=== PATIENT | male | born 1955 | race Caucasian/White ===

== ENCOUNTER 2021-12-31 12:04 | Observation (INO) ==
--- NOTE | 2021-12-25 17:18 | History & Physical Report ---
Date of Service December 25, 2021 Assessment & Plan (1) Closed right trimalleolar fracture: Plan: Schedule a Right Ankle Open Reduction Internal Fixation Trimalleolar Fracture with Open Internal Fixation Syndesmotic Disruption, Arthrotomy Medial Ankle, Ankle Joint Debridement for 12.31.21. All potential risks, benefits, complications, alternatives, and rehab have been discussed with the patient and his family and they wish to proceed. (2) Syndesmotic disruption of right ankle: History of Present Illness Chief Complaint: Right ankle pain Primary Care Provider: Kyler Villar MD This is a patient who sustained a right ankle fracture approximately 6 weeks ago. Because of his secondary medical conditions, the fracture was treated conservatively. However, in follow-up, the fracture was noted to be displacing and the ankle mortise is widening. He is now being set up for surgical treatment. Allergies Allergy/AdvReac Type Severity Reaction Status Date / Time No Known Allergies Allergy Verified 12/25/21 10:11 Home Medications Medication Instructions Recorded Confirmed Type apixaban 5 mg tablet (Eliquis) 5 mg PO BID #60 tab 08/20/21 12/25/21 Rx atorvastatin 20 mg tablet 20 mg PO HS #30 tab 08/20/21 12/25/21 Rx escitalopram oxalate 10 mg tablet 10 mg PO DAILY #30 tab 08/20/21 12/25/21 Rx omeprazole 40 mg capsule,delayed 40 mg PO DAILY #90 cap 08/20/21 12/25/21 Rx release loratadine 10 mg tablet (Claritin) 10 mg PO DAILY #30 tab 08/27/21 12/25/21 Rx multivitamin 1 tab PO DAILY #30 tab 08/27/21 12/25/21 Rx Past Med/Surg History Medical History Basal cell carcinoma Stroke 2006 Rt UE paresis w expressive aphasia Surgical History History of appendectomy History of left knee surgery History of neck surgery Hx of LASIK Family History Mother Breast cancer Heart disease Hypertension Ovarian cancer Stroke TIA TIA (transient ischemic attack) Uncle Colorectal cancer maternal Grandmother (Maternal) Diabetes Breast cancer Grandfather (Maternal) Lung cancer Denies family history of Prostate cancer Alzheimer disease Bipolar disorder Dementia Depression Kidney disease Myocardial infarction COPD (chronic obstructive pulmonary disease) Colonic polyp Asthma Social History Smoking Status: Current every day smoker Tobacco Type: Cigarettes Age Started Using Tobacco: 18; packs per day: 1; Second Hand Exposure: No; Hx Alcohol Use: Yes Alcohol type: wine Alcohol Intake Frequency: 2-4 x/Month Hx Substance Use: No Preferred Language: Bhutanese Communication Ability: Impaired Hearing Ability: Normal Copy Cutter Required: No marital status: Single Current Living Situation: Personal Care Facility current occupational status: disabled How many Children do You have: 0 Feels Safe at Home: Yes Childhood Exposure to Second-Hand Smoke: Yes Seatbelt Use: always Sunscreen Use: No Physical Exam Constitutional: no acute distress ENMT: external ear and nose normal, oropharynx normal Neck: trachea midline Respiratory: normal respiratory effort, lungs clear to auscultation Cardiovascular: Rate/Rhythm: regular rate and regular rhythm Gastrointestinal (Abdomen): normal bowel sounds, soft, nontender, no hepatosplenomegaly Musculoskeletal: Right ankle: Tender to the lateral and medial aspect of the ankle. Patient is nonweightbearing. Neurologic: normal touch/pain/proprioception Speech / Cognition: + expressive aphasia Lymphatic: no cervical or axillary lymphadenopathy
--- NOTE | 2021-12-29 12:07 | PAT Medication Instructions ---
Medication Instructions Date of Service December 29, 2021 Home Medications Medication Instructions Recorded apixaban 5 mg tablet (Eliquis) 5 mg PO BID #60 tab 08/20/21 atorvastatin 20 mg tablet 20 mg PO HS #30 tab 08/20/21 apixaban 5 mg tablet (Eliquis) 5 mg PO BID atorvastatin 20 mg tablet 20 mg PO HS escitalopram oxalate 10 mg tablet 10 mg PO QAM loratadine 10 mg tablet (Claritin) 10 mg PO QAM multivitamin 1 tab PO QAM omeprazole 40 mg capsule,delayed release 40 mg PO QAM ASK your prescriber and surgeon apixaban 5 mg tablet (Eliquis) 5 mg PO BID DO NOT take the morning of surgery loratadine 10 mg tablet (Claritin) 10 mg PO QAM multivitamin 1 tab PO QAM Take morning of surgery With a small sip of water, OTHERWISE NOTHING TO EAT OR DRINK AFTER MIDNIGHT: escitalopram oxalate 10 mg tablet 10 mg PO QAM omeprazole 40 mg capsule,delayed release 40 mg PO QAM Take evening before surgery atorvastatin 20 mg tablet 20 mg PO HS Other Notes If you have any questions please call us at [phone] or [phone] or [phone] or [phone]
--- NOTE | 2021-12-29 16:08 | Anesthesiology Consultation ---
Date of Service December 29, 2021 Assessment & Plan (1) Encounter for pre-operative examination: Chart Review Chart Review: Acceptable Risk for Surgery (pending DOS PRP, anesthesia evaluation DOS and anesthesiologist review of unconfirmed preop EKG ) and Patient NOT seen in Pre Admission Testing Pt with "congenital heart disease" per PCP records- per review of records patient with "hole in his heart" per ECHO in Jun 2021 in [place] (PCP attempt ed to get records- pt does not know where he had ECHO done in [place]). Pt is on Eliquis since PE in 06/2021. Pt followed by PCP and cleared for surgery. Discussed with Dr. Paulson- pt can proceed as scheduled -Will order PRP DOS (not done preoperatively) Per nursing assessment 12/29/2021, pt resides in [facility]. No known Covid positive exposures or Covid related symptoms. No known Covid infection in the past 90 days. Pt is fully vaccinated for Covid. Preop Covid testing 12/26/21= negative. Preop Covid testing will be five days old by DOS- will order [place] test for DOS. Patient seen by PCP 12/25/2021 = seen for preop examination. Patient with previous history of pulmonary embolism with recent trimalleolar fracture of the right ankle. Preoperatively patient should come off Eliquis 5 days prior to his surgery and should be started 48 hours after surgery is completed if he has no bleeding. DVT prophylaxis recommended with compressive sequential pumps postoperatively. Neurological statushas expressive asphasia with dense right upper extremity, right lower extremity hemiparesis with loss of sensation in the right upper and right lower extremity from previous stroke. Hypercholesterolemiaon statin. History of depressionLexapro. Considered average operative risk. Encourage smoking cessation. History Surgery Operation Date: 12/31/21 14:20 Proposed Procedures p Right Ankle Open Reduction Internal Fixation Trimalleolar Fracture with Open Reduction Internal Fixation Syndesmotic Disruption, Arthrotomy Medial Ankle, Ankle Joint Debridement - Nick Doyle DO Height/Weight Weight: 130.635 kg Allergies Allergy/AdvReac Type Severity Reaction Status Date / Time No Known Allergies Allergy Verified 12/29/21 09:54 Medications Home Medications Medication Instructions Recorded Confirmed Last Taken apixaban 5 mg tablet (Eliquis) 5 mg PO BID #60 tab 08/20/21 12/29/21 Unknown atorvastatin 20 mg tablet 20 mg PO HS #30 tab 08/20/21 12/29/21 Unknown escitalopram oxalate 10 mg tablet 10 mg PO QAM 12/29/21 12/29/21 Unknown loratadine 10 mg tablet (Claritin) 10 mg PO QAM 12/29/21 12/29/21 Unknown multivitamin 1 tab PO QAM 12/29/21 12/29/21 Unknown omeprazole 40 mg capsule,delayed 40 mg PO QAM 12/29/21 12/29/21 Unknown release Past Medical History Medical History (Updated 12/29/21 @ 16:16 by Bere Perez PA-C) Basal cell carcinoma Closed right trimalleolar fracture 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 On Eliquis Stroke 2005 Rt UE paresis w expressive aphasia Past Family History Family History Mother Breast cancer Heart disease Hypertension Ovarian cancer Stroke TIA TIA (transient ischemic attack) Uncle Colorectal cancer maternal Grandmother (Maternal) Diabetes Breast cancer Grandfather (Maternal) Lung cancer Denies family history of Prostate cancer Alzheimer disease Bipolar disorder Dementia Depression Kidney disease Myocardial infarction COPD (chronic obstructive pulmonary disease) Colonic polyp Asthma Past Surgical History Surgical History History of appendectomy History of left knee surgery History of neck surgery Hx of LASIK Social History Smoking Status: Current every day smoker tobacco type: cigarettes Smoking cigarettes per day: [place] stout Do You Dip or Chew Tobacco: No Hx Alcohol Use: Yes Alcohol type: wine alcohol intake frequency: a few times a month Hx Substance Use: No substance use type: does not use Lab Results Anesthesia Preop Results Results Anesthesia Widget: WBC 8.44 K/uL (4.8-10.8) 12/25/21 Hgb 16.0 g/dL (14.0-18.0) 12/25/21 Hct 48.0 % (42-52) 12/25/21 Plt 234 K/uL (130-400) 12/25/21 PT 10.9 Seconds (9.0-12.0) 12/25/21 PTT 29.0 Seconds (21.0-31.0) 12/25/21 INR 1.0 (0.9-1.1) 12/25/21 Testing Electrocardiogram Date: 12/25/21 SR at 68bpm. unconfirmed (Done at PCP office during preop evaluation visit- pt considered average risk for surgery) Chest X-Ray Date: 11/15/21 1 view CXR No acute disease identified Other Testing CT head/brain 11/15/2021 = no acute intracranial abnormalities identified. Large chronic left MCA territory infarction. Global volume loss and findings most commonly associated with chronic small vessel disease. Intracranial atherosclerotic disease.
[~2021-12-31 12:04] MED LIST: LR 15ML/HR IV SCH
--- NOTE | 2021-12-31 13:55 | History & Physical Bridge Note ---
Date of Service December 31, 2021 History & Physical Bridge Note I have examined the patient, reviewed the History & Physical and in the interval since the performance of the History & Physical I have noted the following changes of clinical significance: no changes noted
[2021-12-31] MEDS ORDERED: ROPIVACAINE 0.5% 5 MG/ML 30 ML VIAL ONE (15:06)
[2021-12-31] MEDS ORDERED: EPINEPHrine INJ 1 MG/ML AMP ONE (15:07)
[2021-12-31] MEDS ORDERED: fentaNYL citrate 100 MCG/2 ML VIAL ONE ×2 (15:11→17:33)
[2021-12-31] MEDS ORDERED: PROPOFOL IV EMULSION 10 MG/ML 20 ML VIAL IV ONE ×2 (15:44→17:11)
[2021-12-31] MEDS ORDERED: LIDOCAINE 2% 2 ML VIAL/AMP(20MG/ML) INFIL ONE (15:44)
[2021-12-31] MEDS ORDERED: BUPIVACAINE 0.5 % 5 MG/1 ML MPF 30ML VIAL ONE (15:46)
[2021-12-31] MEDS ORDERED: ceFAZolin 330 MG/ML 1 GM VIAL ONE (15:46)
[2021-12-31] MEDS ORDERED: ePHEDrine sulfate 50 MG/ML AMP IV PRN (16:05)
[2021-12-31] MEDS ORDERED: HYDROmorphone INJ 1 MG/ML SYRINGE IV PRN (16:05)
[2021-12-31] MEDS ORDERED: ATROPINE SULFATE 0.1 MG/ML 10ML SYR IV PRN (16:05)
[2021-12-31] MEDS ORDERED: LABETALOL HCL IV 5 MG/ML 20ML IV PRN (16:05)
[2021-12-31] MEDS ORDERED: fentaNYL citrate 100 MCG/2 ML VIAL IV PRN (16:05)
[2021-12-31] MEDS ORDERED: ONDANSETRON INJ 2 MG/ML 2 ML VIAL IV PRN ×2 (16:05→19:51)
[2021-12-31] MEDS ORDERED: PHENYLEPHRINE 100MCG/ML 5ML SYR IV PRN (16:05)
[2021-12-31] MEDS ORDERED: KETAMINE 50 MG/5 ML SYRINGE ONE (16:14)
[2021-12-31] MEDS ORDERED: ePHEDrine sulfate 50 MG/ML AMP ONE (17:10)
[2021-12-31] MEDS ORDERED: DEXAMETHASONE SOD INJ 4 MG/ML VIAL ONE (17:12)
[2021-12-31] MEDS ORDERED: ONDANSETRON INJ 2 MG/ML 2 ML VIAL ONE (17:12)
--- NOTE | 2021-12-31 18:24 | Post Operative Brief Note ---
Immediate Post Op Note v1 Date of Surgery December 31, 2021 Pre & Post Diagnosis Operation Date: 12/31/21 14:20 Pre-Op Diagnosis: Right Ankle Trimalleolar Fracture, Syndesmotic Disruption Post-Op Diagnosis: Right Ankle Trimalleolar Fracture, Syndesmotic Disruption I identified the patient and participated in the time-out.: Yes Procedure Operation Date: 12/31/21 14:20 Actual Procedures p Right Ankle Open Reduction Internal Fixation displaced Trimalleolar Fracture, Open Reduction Internal Fixation Syndesmotic Disruption, Arthrotomy Lateral Ankle joint, Ankle Joint Debridement(Right) - Nick Doyle DO Surgeon Nick Doyle DO Telephoto Engineer Guanakito Cerda PA-C Estimated Blood Loss 5 Findings Consistent with Post-Op Diagnosis Anesthesia Type General Regional Complications none Disposition Accompanied Patient To Recovery: No
--- NOTE | 2021-12-31 19:03 | Anesthesiology Progress Note ---
Date of Service December 31, 2021 Anesthesia Post Procedure Vital Signs Vital Signs: Temp Pulse Pulse Resp BP Pulse Ox 12/31/21 18:08 37.0 C 80 18 121/53 L 96 12/31/21 12:34 36.7 C 66 20 132/7 L 96 Transfer of Care Handoff Completed per policy Notes Mental Status: alert / awake / arousable Patient Amnestic to Procedure: Yes Nausea / Vomiting: adequately controlled Pain: adequately controlled Airway Patency, RR, SpO2: stable & adequate BP & HR: stable & adequate Hydration State: stable & adequate Anesthetic Complications: no major complications apparent and Pt Satisfied with anesthetic care Notes: The patient is awake and comfortable. His vital signs are stable.
--- NOTE | 2021-12-31 19:39 | Fluoroscopy Report ---
FL ankle RT min 3V RTN CLINICAL HISTORY: ORIF RT ANKLE COMPARISON STUDY: None FLUOROSCOPY TIME: 22 seconds. FLUOROSCOPIC IMAGES: 3 FINDINGS: Plate and screw fixation is seen transfixing distal fibular fracture. A screw is also prese nt across the distal tibia-fibular syndesmosis. IMPRESSION: Status post internal fixation. ACT 112: Negative or not required by law. Electronically signed by: Mushtaq Simon M.D. 12/31/2021 7:38 PM
[2021-12-31] MEDS ORDERED: bisacodyL 10 MG SUPP PR PRN (19:51)
[2021-12-31] MEDS ORDERED: NALOXONE HCL 0.4 MG/1 ML VIAL/CARP IV PRN (19:51)
[2021-12-31] MEDS ORDERED: MAGNESIUM HYDROXIDE SUSP 30 ML UDC PO PRN (19:51)
[2021-12-31] MEDS ORDERED: HYDROmorphone INJ 0.5 MG/0.5 ML SYR IV PRN (19:51)
[2021-12-31] MEDS ORDERED: oxyCODONE HCL IR 5 MG TAB (IMMEDIATE RELEASE) PO PRN (19:51)
[2021-12-31] MEDS: SODIUM CHLORIDE 0.9% 1000ML 1,000 ML IV SCH (20:44)
[2021-12-31] MEDS: DOCUSATE SODIUM 100 MG CAP PO SCH (21:35)
[2021-12-31] MEDS: SENNA 8.6 MG TAB PO SCH (21:35)
[2021-12-31] MEDS: ACETAMINOPHEN 500 MG TAB PO SCH (21:36)
[2021-12-31] MEDS: ATORVASTATIN 20 MG TAB PO SCH (21:36)
--- NOTE | 2021-12-31 22:47 | Operative Report (OR) ---
DATE OF PROCEDURE: 12/31/2021. PREOPERATIVE DIAGNOSES: 1. Right displaced trimalleolar ankle fracture. 2. Syndesmotic disruption. POSTOPERATIVE DIAGNOSES: 1. Right displaced trimalleolar ankle fracture. 2. Syndesmotic disruption. 3. Arthrofibrosis of the ankle joint. PROCEDURES: 1. Open reduction and internal fixation of displaced trimalleolar ankle fracture on the right ankle. 2. Open reduction and internal fixation of syndesmotic disruption, right ankle. 3. Arthrotomy of the lateral ankle joint. 4. Open debridement of the right ankle joint. SURGEON: Nick Doyle DO GOLD FRAME ASSEMBLER: Guanakito Cerda PA-C who was present for patient positioning, sterile prep and drape, m anagement of retractors and instruments. He was present through the critical portions of the case inc luding wound closure, application of sterile dressing and transport of the patient to recovery. ANESTHESIA: General, regional. SPECIMENS: None. DRAINS: None. COMPLICATIONS: None. BLOOD LOSS: 5 mL. PERTINENT HISTORY: This is a 66-year-old gentleman with post-stroke syndrome with hemiparesis, who s ustained a twisting fall on his right ankle. He subsequently had a displaced trimalleolar ankle frac ture with minimal displacement. Initially, he was treated conservatively with a cast; however, due t o the challenges associated with his hemiparesis, he inevitably had to walk on the ankle for transfer s and then at subsequent office followup, the fracture displaced despite being in a well-padded cast. The patient was then scheduled for surgery as indicated. All potential risks, benefits, complications, alternatives, rehab potential for incomplete relief of symptoms, need for further surgery, DVT, PE, , persistent pain, swelling, scarring, weakness, ne urovascular injury, wound complications, hardware failure, nonunion, malunion, bone fracture were dis cussed with the patient. The patient decided to proceed with the procedure as indicated. DESCRIPTION OF PROCEDURE: After receiving regional anesthetic in the preoperative holding area, the patient was then taken to the operative suite and placed supine on the operating table. After review of consent and identification of proper operative site, the patient was anesthetized, LMA was placed . Tourniquet was placed high on the right thigh over cast padding. Right lower extremity was then s terilely prepped and draped in the usual sterile fashion, elevated and exsanguinated with an Esmarch bandage and tourniquet inflated to 350 mmHg. Next, after surgical timeout was performed, a 15 blade scalpel was used to make an incision over the lateral malleolus extending from the distal aspect of the fibula proximally. Incision was then deepe wood through the skin and subcutaneous tissue with a 15-blade scalpel incision. Meticulous hemostasis was achieved with electrocautery. Careful dissection was performed with tenotomy scissors down to t he level of the periosteum while clearing the superficial cutaneous nerves and deep peroneal nerve as necessary and retracting with Ajay rakes. Next, the overlying periosteum was incised and noted to b e thickened over the site of the fracture. It was incised with a 15-blade scalpel and elevated both superiorly and inferiorly, anteriorly, and posteriorly to visualize the displaced shortened distal on e-third fibular shaft fracture, which the tissue was then sharply incised at the fibrous interface an d fibrous tissue and immature clot was then cleared from the fracture site with a curette, rongeur, a nd dental pick. The site was copiously irrigated with sterile saline and the fracture fragments were mobilized. The ankle joint was noted to be fibrotic limiting the ability to reduce the fracture. T herefore, a lateral joint arthrotomy was made with a 15-blade scalpel, sweeping anterior to the fibul a through the joint capsule to visualize the joint capsule. The joint capsule had features of arthro fibrosis and immature clot. This was debrided using pituitary rongeur and irrigated with sterile violeta ine until clear to clear the arthrofibrosis. Next, this allowed further mobilization of the lateral aspect of the ankle joint and using gentle traction and manipulation, and use of lion's jaw reduction forceps x2, the fracture fragment was then reduced into near anatomic position under live fluoroscop ic assistance. Next, the reduced fracture was then provisionally pinned in place with two 1.6 mm jammie de pins placed under live fluoroscopic assistance through the fibula into the tibia. Next, a Synthes locking periarticular distal fibular plate was then provisionally fixed to the lateral aspect of the fibula using multiple bone clamps and then the plate was then stabilized with multiple 2.7 and 3.5 m m locking screws placed under live fluoroscopic assistance to achieve anatomic reduction and fixation . Next, the medial malleolus avulsion from the trimalleolar fracture was noted to be stabilized and improved alignment, therefore not requiring any direct surgical fixation. The posterior malleolar fr agment was noted to be aligned well and the ankle joint mortise was noted to be stabilized with the e xception of continued syndesmotic instability as confirmed with live fluoroscopic stress views of the ankle. Next, the ankle joint was held in neutral dorsiflexion with full dorsiflexion. The ankle mortise was then reduced into anatomic alignment and then a single 4.5 mm fully-threaded large fragment screw wa s placed from the lateral malleolus through the plate into the distal tibia. Next, the stress views were then repeated, the syndesmosis was noted to be stable. The lateral incision and arthrotomy were both irrigated with copious amounts of sterile saline until clear. The ankle joint arthrotomy incis ion was closed using 2-0 Vicryl. The periosteum and fascia was closed using 2-0 Vicryl laterally and the dermis was closed using buried interrupted 3-0 Vicryl. The skin was closed using nylon sutures. Final radiographs were obtained, noting anatomic alignment and fixation and sterile compressive chad ssing and bulky Sahil Lara plaster splint was applied overwrapped with an Judd wrap. The tourniquet was released. Normal hyperemic response turned to the toes. The patient was awakened and taken to recovery in stable condition. Job ID: [id number]
[2021-12-31] MEDS: ceFAZolin 2000MG 2,000 MG/15 ML SYR IV SCH (23:23)
[2022-01-01] MEDS: ACETAMINOPHEN 500 MG TAB PO SCH ×3 (05:50→21:39)
[2022-01-01] MEDS: SODIUM CHLORIDE 0.9% 1000ML 1,000 ML IV SCH (06:58)
[2022-01-01] MEDS: PANTOprazole 40 MG TAB PO SCH (08:02)
[2022-01-01] MEDS: MULTIVITAMIN TAB PO SCH (08:02)
[2022-01-01] MEDS: LORATADINE 10 MG TAB PO SCH (08:02)
[2022-01-01] MEDS: APIXABAN 5 MG TABLET PO SCH ×2 (08:02→20:30)
[2022-01-01] MEDS: DOCUSATE SODIUM 100 MG CAP PO SCH ×2 (08:02→20:31)
[2022-01-01] MEDS: ceFAZolin 2000MG 2,000 MG/15 ML SYR IV SCH (08:02)
[2022-01-01] MEDS: ESCITALOPRAM OXALATE 10 MG TAB PO SCH (08:02)
--- NOTE | 2022-01-01 08:58 | Orthopedic Progress Note ---
Date of Service January 01, 2022 Assessment & Plan (1) Closed right trimalleolar fracture: Plan: Postop day 1 status post ORIF right ankle. PT/OT protocols. Nonweightbearing right lower extremity. DVT prophylaxis-apixaban p.o. twice daily, NAMITA Mcqueen Pain management as written. DC planning-patient resides at an assisted living facility and will need a [facility] facility versus rehab prior to returning home. (2) Syndesmotic disruption of right ankle: Admission and Anticipated Discharge Date Admission Date: December 31, 2021 Subjective Postop day 1 Patient currently awake and alert lying in bed. No complaints this morning. Pain is controlled. Physical Exam Physical Exam: Splint is clean, dry, and intact. Toes are pink and warm. Cap refills less than 2 seconds. Results & Data ([facility]) Vital Signs (Past 12 Hours) Vital Signs Temp Pulse Pulse Resp BP Pulse Ox 01/01/22 07:10 36.8 C 85 18 104/67 94 01/01/22 02:21 36.9 C 86 18 105/68 93 12/31/21 22:28 36.9 C 92 H 20 116/70 96 12/31/21 21:27 36.9 C 93 H 20 120/66 94
[2022-01-01] MEDS ORDERED: MULTIVITAMIN TAB PO SCH (09:00)
[2022-01-01 09:30] LABS: Hematocrit (blood only) 42.4 % (42-52); Hemoglobin 14.1 g/dL (14.0-18.0); Mean Corpuscular Hemoglobin 31.1 pg (25-34); Mean Corpuscular Hgb Conc 33.3 g/dL (32-36); Mean Corpuscular Volume 93.6 fL (80-100); Mean Platelet Volume 10.5 fL (7.4-10.4); Platelet Count 228 K/uL (130-400); RDW Coefficient of Variation 13.4 % (11.5-14.5); RDW Standard Deviation 46.3 fL (36.4-46.3); Red Blood Count 4.53 M/uL (4.7-6.1); White Blood Count 17.22 K/uL (4.8-10.8)
[2022-01-01 09:51] LABS: BUN Creatinine Ratio 14.3 (10-20); Calcium 8.7 mg/dl (8.5-10.1); Creatinine Clr Calc Pharmacy 124.2 ml/min; Est GFR (African American) 106.5 ml/min; Est GFR (Non-African American) 91.9 ml/min; Potassium 3.8 mmol/L (3.5-5.1)
--- NOTE | 2022-01-01 15:58 | Hospitalist Consultation ---
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 Thank you for allowing us to participate in the care of your patient. Will follow along. AM labs ordered. Plan to be d/w Dr. Post. Supervising Physician Co-Signing Physician Notes Patient seen and examined, chart reviewed, case discussed with Trinidad Davenport PA-C and I agree with the assessment and plan as above except as otherwise noted.Patient is a 66-year-old male with a history of expressive aphasia and right sided sensory loss who presented for trimalar fracture status post ORIF. Doing well postoperatively. Continues to have expressive aphasia, but does not have any receptive aphasia. On exam patient is resting comfortably, right lower extremity is in postsurgical wrap and cap refill is brisk in the right hallux. Nods to sensory loss on entire right side, nods that this is baseline. Is able to pantomime to assist communication, generally has complete aphasia with repeatedly mumbling 'sharmin' on attempts to speak. On review leukocytosis likely reactive. Would recommend adding aspirin 81 mg daily on discharge otherwise agree with management above History of Present Illness Reason for Consultation: Medical management Requesting Physician: Dr. Doyle Attending Physician: Nick Doyle, DO History of Present Illness Mr. Hall is a pleasant 66 yo WM with a past medical history of CVA in 2005 resulting in expressive aphasia and right upper and lower extremity weakness, hyperlipidemia, depression, GERD, and history of pulmonary embolism on Eliquis who was hospitalized under Dr. Doyle's service for elective repair of right ankle fracture. He sustained a right ankle fracture 6 weeks ago which was attempted to be managed conservatively due to his other medical comorbidities. Unfortunately, when pt was seen in follow up, the fracture was noted to be displaced and the ankle mortise was widening and he was subsequently set up for surgical treatment. He underwent ORIF of the ankle fracture, ORIF of syndesmotic disruption of R ankle, arthrotomy of the lateral ankle joint, and open debridement of the ankle joint on 12/31. He tolerated the procedure well without any immediate complications. He is currently seen POD#1, resting c omfortably in bed. He notes pain is adequately controlled. He denies chest pain or dyspnea. No abdominal discomfort or urinary issues. He is passing flatus. Allergies Allergy/AdvReac Type Severity Reaction Status Date / Time No Known Allergies Allergy Verified 12/31/21 12:23 Home Medications Medication Instructions Recorded Confirmed Type apixaban 5 mg tablet (Eliquis) 5 mg PO BID #60 tab 08/20/21 12/31/21 Rx atorvastatin 20 mg tablet 20 mg PO HS #30 tab 08/20/21 12/31/21 Rx escitalopram oxalate 10 mg tablet 10 mg PO QAM 12/29/21 12/31/21 History loratadine 10 mg tablet (Claritin) 10 mg PO QAM 12/29/21 12/31/21 History multivitamin 1 tab PO QAM 12/29/21 12/31/21 History omeprazole 40 mg capsule,delayed 40 mg PO QAM 12/29/21 12/31/21 History release acetaminophen 500 mg tablet 1,000 mg PO Q8 21 Days #126 tab 01/02/22 Rx (Tylenol Extra Strength) docusate sodium 100 mg capsule 100 mg PO BID 10 Days #20 cap 01/02/22 Rx multivitamin with folic acid 400 1 tab PO QAM #30 tab 01/02/22 Rx mcg tablet (Daily-John (with folic acid)) oxycodone 5 mg tablet 5 - 10 mg PO Q6H PRN #30 tab 01/02/22 Rx Patient History Medical History Basal cell carcinoma Closed right trimalleolar fracture 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 On Eliquis Stroke 2005 Rt UE paresis w expressive aphasia Surgical History (Updated 01/01/22 @ 15:47 by Darlyn Davenport PA-C) History of appendectomy History of left knee surgery History of neck surgery Hx of LASIK Family History Mother Breast cancer Heart disease Hypertension Ovarian cancer Stroke TIA TIA (transient ischemic attack) Uncle Colorectal cancer maternal Grandmother (Maternal) Diabetes Breast cancer Grandfather (Maternal) Lung cancer Denies family history of Prostate cancer Alzheimer disease Bipolar disorder Dementia Depression Kidney disease Myocardial infarction COPD (chronic obstructive pulmonary disease) Colonic polyp Asthma Social History Smoking Status: Current every day smoker Tobacco Type: Cigarettes Age Started Using Tobacco: 18; packs per day: 1; Cigarettes Per Day: Raven stout; Second Hand Exposure: No; Do You Dip or Chew Tobacco: No; Tobacco Cessation Education Requested by Patient: No Hx Alcohol Use: Yes Alcohol type: hard liquor Alcohol Intake Frequency: 2-4 x/Month Hx Substance Use: No Preferred Language: Divehi Communication Ability: Effective Hearing Ability: Normal Denier Control Operator Required: No Beliefs That Will Affect Care: None marital status: Unknown Current Living Situation: Personal Care Facility Current Living Situation Comment: [facility] current occupational status: disabled How many Children do You have: 0 Other Information That Helps Us Care for You: No Feels Safe at Home: Yes Safety Concerns: Feels Safe At This Time Childhood Exposure to Second-Hand Smoke: Yes Seatbelt Use: always Sunscreen Use: No Assistive Devices: Walker and Wheelchair Review of Systems Review of Systems: All systems reviewed and are unremarkable except as noted in HPI and below. Denies fever, chills, fatigue, headache, nasal congestion, sore throat, cough, chest pain, shortness of breath, palpitations, orthopnea, PND, abdominal pain, n/v/d, constipation, dysuria, hematuria, frequency, back pain, joint pain or swelling, easy bruising or bleeding, skin lesions or rashes. Physical Exam Physical Exam: GENERAL: 66 yo overweight WM. Pleasant, cooperative. NAD. EYES: EOMI. PERRLA. Anicteric. HENT: Moist mucous membranes. No scleral icterus. No cervical lymphadenopathy. LUNGS: Clear to auscultation bilaterally. No W/R/R. CARDIOVASCULAR: Regular rate and rhythm. ABDOMEN: Soft, non-tender and non-distended. BS normoactive x 4 quad. EXTREMITIES: No edema. Non-tender. Peripheral pulses +2/4. NEUROLOGIC: A&O x3. Expressive aphasia makes communication challenging but he shakes head yes/no appropriately to questions. PSYCHIATRIC: Cooperative. Appropriate mood and affect. SKIN: Warm, dry, intact. No rashes or lesions. Results & Data Results & Data ([facility]) Vital Signs (Past 12 Hours) Vital Signs Temp Pulse Resp BP Pulse Ox Pulse Ox Pulse Ox 01/01/22 14:18 94 97 01/01/22 07:10 36.8 C 85 18 104/67 94 Pulse Ox 01/01/22 14:18 94 01/01/22 07:10 Laboratory Results 01/01/22 08:57 01/01/22 08:57 PG Care Time/CCT Total # of Minutes Spent Total Time Spent with Patient: Total time spent is greater than 50% in coordination of care (as documented) at patient's floor/unit and/or counseling patient: Coding Level of Care Code 98157 Inpt Consult Level 3 Diagnoses Status post ORIF of fracture of ankle Z98.890; Z87.81 Stroke I63.9 Pulmonary embolism I26.99 Hypercholesterolemia E78.00 Depression F32.A
[2022-01-01] MEDS: ATORVASTATIN 20 MG TAB PO SCH (20:30)
[2022-01-01] MEDS: SENNA 8.6 MG TAB PO SCH (20:31)
[2022-01-02] MEDS: ACETAMINOPHEN 500 MG TAB PO SCH ×3 (05:28→19:58)
--- NOTE | 2022-01-02 07:34 | Orthopedic Progress Note ---
Date of Service January 02, 2022 Assessment & Plan (1) Closed right trimalleolar fracture: Plan: Postop day 2 status post ORIF right ankle. PT/OT protocols. Nonweightbearing right lower extremity. DVT prophylaxis-apixaban p.o. twice daily, SCDsNAMITA Pain management as written. DC planning-patient resides at an assisted living facility and will need a detention facility versus rehab prior to returning home. (2) Syndesmotic disruption of right ankle: Admission and Anticipated Discharge Date Admission Date: December 31, 2021 Subjective Postop day 2 Patient currently awake and alert lying in bed. No complaints this morning, Patient has aphasia due to history of CVA. He is able to nod "Yes" and "No" to questions appropriately. Pain is controlled. Physical Exam Physical Exam: Vital Signs Temp 36.4 C L 01/02/22 07:07 Pulse 66 01/02/22 07:07 Resp 16 01/02/22 07:07 BP 101/61 01/02/22 07:07 Pulse Ox 92 01/02/22 07:07 Intake & Output 01/01/22 01/02/22 01/02/22 18:59 06:59 18:59 Intake Total 467.25 / 467.25 Output Total 2000 / 3400 1400 / 3400 Balance -1532.75 / -2932.7 5 -1400 / -2932.75 Intake: IV 67.25 / 67.25 Lactated Ringe r's 1,000 ml @ 15 67.25 / 67.25 mls/hr IV .Q24 H NADYA Rx#: [id number] Oral 400 / 400 Output: Urine 2000 / 3400 1400 / 3400 Splint is clean, dry, and intact. Toes are pink and warm. Cap refills less than 2 seconds. Results & Data ([facility]) Vital Signs (Past 12 Hours) Vital Signs Temp Pulse Resp BP Pulse Ox 01/02/22 07:07 36.4 C L 66 16 101/61 92 01/01/22 22:55 36.7 C 71 18 112/55 L 93
[2022-01-02] MEDS: APIXABAN 5 MG TABLET PO SCH ×2 (08:49→19:57)
[2022-01-02] MEDS: LORATADINE 10 MG TAB PO SCH (08:50)
[2022-01-02] MEDS: ESCITALOPRAM OXALATE 10 MG TAB PO SCH (08:50)
[2022-01-02] MEDS: DOCUSATE SODIUM 100 MG CAP PO SCH ×2 (08:50→19:58)
[2022-01-02] MEDS: MULTIVITAMIN TAB PO SCH (08:51)
[2022-01-02] MEDS: PANTOprazole 40 MG TAB PO SCH (08:52)
[2022-01-02 08:54] LABS: Basophils # (auto) 0.02 K/uL (0-0.2); Basophils % (auto) 0.2 %; Eosinophils # (auto) 0.15 K/uL (0-0.5); Eosinophils % (auto) 1.2 %; Hematocrit (blood only) 41.1 % (42-52); Hemoglobin 13.6 g/dL (14.0-18.0); Immature Granulocytes # (auto) 0.03 K/uL (0.00-0.02); Immature Granulocytes % (auto) 0.2 %; Lymphocytes # (auto) 3.59 K/uL (1.2-3.4); Lymphocytes % (auto) 29.4 %; Mean Corpuscular Hemoglobin 30.9 pg (25-34); Mean Corpuscular Hgb Conc 33.1 g/dL (32-36); Mean Corpuscular Volume 93.4 fL (80-100); Mean Platelet Volume 10.7 fL (7.4-10.4); Monocytes # (auto) 1.47 K/uL (0.11-0.59); Neutrophils # (auto) 6.97 K/uL (1.4-6.5); Platelet Count 222 K/uL (130-400); RDW Coefficient of Variation 13.6 % (11.5-14.5); RDW Standard Deviation 46.4 fL (36.4-46.3); White Blood Count 12.23 K/uL (4.8-10.8)
[2022-01-02 08:57] LABS: BUN Creatinine Ratio 19.3 (10-20); Calcium 8.4 mg/dl (8.5-10.1); Creatinine Clr Calc Pharmacy 125.7 ml/min; Est GFR (Non-African American) 92.3 ml/min; Potassium 3.7 mmol/L (3.5-5.1)
--- NOTE | 2022-01-02 12:16 | Hospitalist Progress Note ---
Date of Service January 02, 2022 Assessment & Plan (1) Status post ORIF of fracture of ankle: Plan: S/p ORIF of right ankle trimalleolar fracture on 12/31 - Dressing/WB status/antibiotics/pain control as per primary service - Recommend utilizing IS q1h wa for atelectasis/pna prevention - On Eliquis for h/o PE which will provide adequate DVT ppx - Bowel regimen - PT/OT eval -Leukocytosis likely reactive, downtrending. Continue CBC daily (2) Stroke: Plan: - h/o CVA in 2005 resulting in expressive aphasia and hemiparesis - Supportive care - Currently on statin and Eliquis -Recommend addition of baby aspirin daily at discharge (3) Pulmonary embolism: Plan: - On Eliquis which has been resumed - No current c/o chest pain or dyspnea (4) Hypercholesterolemia: Plan: - Continue Atorvastatin (5) Depression: Plan: - Continue Lexapro Admission and Anticipated Discharge Date Admission Date: December 31, 2021 Subjective Subjective limited by expressive aphasia, no receptive aphasia. Patient shakes head to deny chest pain, chest pressure, shortness of breath, difficulty b reathing, and pain. Shakes head no that he does not have intact sensation of soft touch in his right arm, right side/flank, and right leg and nods that this is baseline since his stroke. Nods to endorse soft touch intact in left upper and left lower extremity. Review of Systems Review of Systems: Limited by aphasia as noted, but shakes head to indicate no to 10 point review of systems Physical Exam Physical Exam: General: No acute distress, cooperative. Near complete expressive aphasia with repeating syllables on attempts to speak. No receptive aphasia. HEENT: Atraumatic, normocephalic. Vision and hearing grossly intact. Pulm: CTAB A&P. -wheezes, -rales, -rhonchi. Symmetrical chest rise. No increase in work of breathing. No respiratory distress. Cardiac: RRR, -mrg. Radial pulses intact and symmetrical. Abdominal: Nontender, nondistended, soft. BS present. Extremities: Right lower extremity in postsurgical wrap, hallux refill brisk. Left lower extremity with sensation intact to soft touch. Results & Data Results & Data ([facility]) Vital Signs (Past 12 Hours) Vital Signs Temp Pulse Resp BP Pulse Ox 01/02/22 07:07 36.4 C L 66 16 101/61 92 PG Care Time/CCT Total # of Minutes Spent Total Time Spent with Patient: Total time spent is greater than 50% in coordination of care (as documented) at patient's floor/unit and/or counseling patient: Coding Level of Care Code 74409 Subseq Hosp Care Lvl 2 Diagnoses Status post ORIF of fracture of ankle Z98.890; Z87.81 Stroke I63.9 Pulmonary embolism I26.99 Hypercholesterolemia E78.00 Depression F32.A
[2022-01-02] MEDS: SENNA 8.6 MG TAB PO SCH (19:57)
[2022-01-02] MEDS: ATORVASTATIN 20 MG TAB PO SCH (19:58)
[2022-01-03] MEDS: ACETAMINOPHEN 500 MG TAB PO SCH ×3 (05:36→21:21)
[2022-01-03] MEDS: MULTIVITAMIN TAB PO SCH (07:59)
[2022-01-03] MEDS: APIXABAN 5 MG TABLET PO SCH ×2 (07:59→20:27)
[2022-01-03] MEDS: ESCITALOPRAM OXALATE 10 MG TAB PO SCH (07:59)
[2022-01-03] MEDS: PANTOprazole 40 MG TAB PO SCH (07:59)
[2022-01-03] MEDS: LORATADINE 10 MG TAB PO SCH (07:59)
[2022-01-03] MEDS: DOCUSATE SODIUM 100 MG CAP PO SCH ×2 (07:59→20:27)
--- NOTE | 2022-01-03 08:49 | Orthopedic Progress Note ---
Date of Service January 03, 2022 Assessment & Plan (1) Status post ORIF of fracture of ankle: Plan: 66 yo male stable POD #3 s/p ORIF right ankle 1. Med management 2. DVT prophylaxis- resume Richar Christine 3. PT/OT 4. D/C planning- waiting placement to [facility] Admission and Anticipated Discharge Date Admission Date: December 31, 2021 Subjective Pt resting in bed, appears comfortable, aphasic Physical Exam Physical Exam: Splint intact right lower leg Results & Data ([facility]) Vital Signs (Past 12 Hours) Vital Signs Temp Pulse Resp BP Pulse Ox 01/03/22 07:57 36.7 C 66 16 111/56 L 94 01/02/22 21:48 36.6 C 64 18 113/65 92 Laboratory Results 01/02/22 01/02/22 Range/Units 08:05 08:05 WBC 12.23 H (4.8-10.8) K/uL RBC 4.40 L (4.7-6.1) M/uL Hgb 13.6 L (14.0-18.0) g/dL Hct 41.1 L (42-52) % MCV 93.4 (80-100) fL MCH 30.9 (25-34) pg MCHC 33.1 (32-36) g/dL RDW Std Deviation 46.4 H (36.4-46.3) fL RDW Coeff of Joel 13.6 (11.5-14.5) % Plt Count 222 (130-400) K/uL MPV 10.7 H (7.4-10.4) fL Immature Gran % (Auto) 0.2 % Neut % (Auto) 57.0 % Lymph % (Auto) 29.4 % [place] % (Auto) 12.0 % Eos % (Auto) 1.2 % Baso % (Auto) 0.2 % Neut # (Auto) 6.97 H (1.4-6.5) K/uL Lymph # (Auto) 3.59 H (1.2-3.4) K/uL [place] # (Auto) 1.47 H (0.11-0.59) K/uL Eos # (Auto) 0.15 (0-0.5) K/uL Baso # (Auto) 0.02 (0-0.2) K/uL Immature Gran # (Auto) 0.03 H (0.00-0.02) K/uL Sodium 141 (136-145) mmol/L Potassium 3.7 (3.5-5.1) mmol/L Chloride 110 H (98-107) mmol/L Carbon Dioxide 27 (21-32) mmol/L Anion Gap 4 (3-11) BUN 16 (6-23) mg/dl Creatinine 0.83 (0.6-1.4) mg/dl Est Cr Clr Drug Dosing 125.7 ml/min Est GFR ( Amer) 107.0 ml/min Est GFR (Non-Af Amer) 92.3 ml/min BUN/Creatinine Ratio 19.3 (10-20) Glucose 92 (70-99(Fasting)) mg/dl Calcium 8.4 L (8.5-10.1) mg/dl
--- NOTE | 2022-01-03 15:02 | Hospitalist Progress Note ---
Date of Service January 03, 2022 Assessment & Plan (1) Status post ORIF of fracture of ankle: Plan: 66-year-old male with a history of stroke with right hemiparesis and expressive aphasia who presented with trimalleolar fracture now status post ORIF 12/31. Doing well, stable, pending placement. Currently doing well and stable, medicine to sign off while pending placement. Will follow peripherally. S/p ORIF of right ankle trimalleolar fracture on 12/31 - Dressing/WB status/antibiotics/pain control as per primary service - Recommend utilizing IS q1h wa for atelectasis/pna prevention - On Eliquis for h/o PE which will provide adequate DVT ppx - Bowel regimen -Continue PT/OT while pending placement -Leukocytosis likely reactive, downtrending. Medically stable for discharge Updated disability case manager, referrals out to [facility]. No beds available over the weekend, possibly Wednesday for Auth/placement Labs [id number], will follow CBC/BMP tomorrow and if doing well sign off (2) Stroke: Plan: - h/o CVA in 2005 resulting in expressive aphasia and hemiparesis - Supportive care - Currently on statin and Eliquis -Recommend addition of baby aspirin daily at discharge (3) Pulmonary embolism: Plan: - On Eliquis which has been resumed - No current c/o chest pain or dyspnea (4) Hypercholesterolemia: Plan: - Continue Atorvastatin (5) Depression: Plan: - Continue Lexapro Admission and Anticipated Discharge Date Admission Date: December 31, 2021 Subjective Subjective limited by expressive aphasia. Patient only able to verbalize different inflections of 'owa/'aneowa". No overnight events. Shakes head yes and no to questions. Indicates no pain, no new symptoms, understands discharge is pending rehab with referrals to [facility] potentially available on Wednesday. Review of Systems Review of Systems: Limited by expressive aphasia. Shakes head no to chest pain, chest pressure, shortness of breath, difficulty breathing, lightheadedness, dizziness, pain, abdominal pain, discomfort, and "any other new symptoms " Physical Exam Physical Exam: General: No acute distress, cooperative. Near complete expressive aphasia with repeating syllables 'aneowa' on attempts to speak. No receptive aphasia. HEENT: Atraumatic, normocephalic. Vision and hearing grossly intact. Pulm: CTAB A&P. -wheezes, -rales, -rhonchi. Symmetrical chest rise. No increase in work of breathing. No respiratory distress. Cardiac: RRR, -mrg. Radial pulses intact and symmetrical. Abdominal: Nontender, nondistended, soft. BS present. Extremities: Right lower extremity in postsurgical wrap, hallux refill brisk. Right hemiparesis and absent sensation, chronic. Left lower extremity with sensation intact to soft touch. Results & Data Results & Data ([facility]) Vital Signs (Past 12 Hours) Vital Signs Temp Pulse Resp BP Pulse Ox 01/03/22 07:57 36.7 C 66 16 111/56 L 94 PG Care Time/CCT Total # of Minutes Spent Total Time Spent with Patient: Total time spent is greater than 50% in coordination of care (as documented) at patient's floor/unit and/or counseling patient: Coding Level of Care Code 96509 Subseq Hosp Care Lvl 1 Diagnoses Status post ORIF of fracture of ankle Z98.890; Z87.81 Stroke I63.9 Pulmonary embolism I26.99 Hypercholesterolemia E78.00 Depression F32.A
[2022-01-03] MEDS: ATORVASTATIN 20 MG TAB PO SCH (20:27)
[2022-01-03] MEDS: SENNA 8.6 MG TAB PO SCH (20:27)
[2022-01-04] MEDS: ACETAMINOPHEN 500 MG TAB PO SCH ×3 (05:53→21:14)
[2022-01-04 07:14] LABS: Basophils # (auto) 0.03 K/uL (0-0.2); Basophils % (auto) 0.3 %; Eosinophils # (auto) 0.35 K/uL (0-0.5); Eosinophils % (auto) 4.1 %; Hematocrit (blood only) 42.9 % (42-52); Hemoglobin 14.4 g/dL (14.0-18.0); Immature Granulocytes # (auto) 0.04 K/uL (0.00-0.02); Immature Granulocytes % (auto) 0.5 %; Lymphocytes # (auto) 3.08 K/uL (1.2-3.4); Lymphocytes % (auto) 35.9 %; Mean Corpuscular Hemoglobin 31.6 pg (25-34); Mean Corpuscular Hgb Conc 33.6 g/dL (32-36); Mean Corpuscular Volume 94.3 fL (80-100); Mean Platelet Volume 10.6 fL (7.4-10.4); Monocytes # (auto) 1.04 K/uL (0.11-0.59); Monocytes % (auto) 12.1 %; Neutrophils # (auto) 4.04 K/uL (1.4-6.5); Neutrophils % (auto) 47.1 %; Platelet Count 247 K/uL (130-400); RDW Coefficient of Variation 13.4 % (11.5-14.5); RDW Standard Deviation 45.9 fL (36.4-46.3); Red Blood Count 4.55 M/uL (4.7-6.1); White Blood Count 8.58 K/uL (4.8-10.8)
[2022-01-04 07:31] LABS: BUN Creatinine Ratio 25.6 (10-20); Calcium 8.5 mg/dl (8.5-10.1); Creatinine Clr Calc Pharmacy 133.7 ml/min; Est GFR (African American) 109.8 ml/min; Est GFR (Non-African American) 94.7 ml/min
[2022-01-04] MEDS: LORATADINE 10 MG TAB PO SCH (09:11)
[2022-01-04] MEDS: ESCITALOPRAM OXALATE 10 MG TAB PO SCH (09:11)
[2022-01-04] MEDS: PANTOprazole 40 MG TAB PO SCH (09:11)
[2022-01-04] MEDS: MULTIVITAMIN TAB PO SCH (09:11)
[2022-01-04] MEDS: APIXABAN 5 MG TABLET PO SCH ×2 (09:12→20:11)
[2022-01-04] MEDS: DOCUSATE SODIUM 100 MG CAP PO SCH ×2 (09:12→20:10)
--- NOTE | 2022-01-04 09:53 | Orthopedic Progress Note ---
Date of Service January 04, 2022 Assessment & Plan (1) Status post ORIF of fracture of ankle: Plan: 66 yo male stable POD #4 s/p ORIF right ankle 1. Med management 2. DVT prophylaxis- Eliquis, SCDs 3. PT/OT 4. D/C planning- [facility] [place] Admission and Anticipated Discharge Date Admission Date: December 31, 2021 Subjective Pt resting in bed, appears comfortable Physical Exam Physical Exam: Splint intact right LE Results & Data ([facility]) Vital Signs (Past 12 Hours) Vital Signs Temp Pulse Resp BP Pulse Ox 01/04/22 05:56 36.5 C 66 16 124/66 95 01/03/22 22:26 36.7 C 62 18 110/64 91 Laboratory Results 01/04/22 01/04/22 Range/Units 06:43 06:43 WBC 8.58 (4.8-10.8) K/uL RBC 4.55 L (4.7-6.1) M/uL Hgb 14.4 (14.0-18.0) g/dL Hct 42.9 (42-52) % MCV 94.3 (80-100) fL MCH 31.6 (25-34) pg MCHC 33.6 (32-36) g/dL RDW Std Deviation 45.9 (36.4-46.3) fL RDW Coeff of Joel 13.4 (11.5-14.5) % Plt Count 247 (130-400) K/uL MPV 10.6 H (7.4-10.4) fL Immature Gran % (Auto) 0.5 % Neut % (Auto) 47.1 % Lymph % (Auto) 35.9 % [place] % (Auto) 12.1 % Eos % (Auto) 4.1 % Baso % (Auto) 0.3 % Neut # (Auto) 4.04 (1.4-6.5) K/uL Lymph # (Auto) 3.08 (1.2-3.4) K/uL [place] # (Auto) 1.04 H (0.11-0.59) K/uL Eos # (Auto) 0.35 (0-0.5) K/uL Baso # (Auto) 0.03 (0-0.2) K/uL Immature Gran # (Auto) 0.04 H (0.00-0.02) K/uL Sodium 136 (136-145) mmol/L Potassium 4.0 (3.5-5.1) mmol/L Chloride 107 (98-107) mmol/L Carbon Dioxide 25 (21-32) mmol/L Anion Gap 4 (3-11) BUN 20 (6-23) mg/dl Creatinine 0.78 (0.6-1.4) mg/dl Est Cr Clr Drug Dosing 133.7 ml/min Est GFR ( Amer) 109.8 ml/min Est GFR (Non-Af Amer) 94.7 ml/min BUN/Creatinine Ratio 25.6 H (10-20) Glucose 97 (70-99(Fasting)) mg/dl Calcium 8.5 (8.5-10.1) mg/dl
[2022-01-04] MEDS: SENNA 8.6 MG TAB PO SCH (20:10)
[2022-01-04] MEDS: ATORVASTATIN 20 MG TAB PO SCH (20:10)
[2022-01-05] MEDS: ACETAMINOPHEN 500 MG TAB PO SCH ×3 (05:43→20:35)
[2022-01-05] MEDS: LORATADINE 10 MG TAB PO SCH (08:29)
[2022-01-05] MEDS: ESCITALOPRAM OXALATE 10 MG TAB PO SCH (08:29)
[2022-01-05] MEDS: DOCUSATE SODIUM 100 MG CAP PO SCH ×2 (08:29→20:35)
[2022-01-05] MEDS: PANTOprazole 40 MG TAB PO SCH (08:29)
[2022-01-05] MEDS: APIXABAN 5 MG TABLET PO SCH ×2 (08:29→20:35)
[2022-01-05] MEDS: MULTIVITAMIN TAB PO SCH (08:30)
--- NOTE | 2022-01-05 16:38 | Orthopedic Progress Note ---
Date of Service January 05, 2022 Assessment & Plan (1) Status post ORIF of fracture of ankle: Plan: 66 yo male stable POD #5 s/p 1. Open reduction and internal fixation of displaced trimalleolar ankle fracture on the right ankle. 2. Open reduction and internal fixation of syndesmotic disruption, right ankle. 3. Arthrotomy of the lateral ankle joint. 4. Open debridement of the right ankle joint. 1. Med management 2. DVT prophylaxis- Eliquis, SCDs 3. PT/OT 4. Nonweightbearing on the right lower extremity over the next 6 weeks. 5. D/C planning- d/c to [place] when bed available Admission and Anticipated Discharge Date Admission Date: December 31, 2021 Subjective Doing well. Denies pain in his right ankle. Physical Exam Constitutional: no acute distress (Lying comfortably in bed.) ENMT: external ear and nose normal, oropharynx normal Neck: trachea midline Respiratory: normal respiratory effort, lungs clear to auscultation Cardiovascular: Rate/Rhythm: regular rate and regular rhythm Gastrointestinal (Abdomen): normal bowel sounds, soft, nontender, no hepatosplenomegaly Musculoskeletal: Ankle: + surgical incision (Right ankle splint is C/D/I) Neurologic: normal touch/pain/proprioception Speech / Cognition: + expressive aphasia Lymphatic: no cervical or axillary lymphadenopathy Results & Data ([facility]) Vital Signs (Past 12 Hours) Vital Signs Temp Pulse Pulse Resp BP Pulse Ox 01/05/22 16:23 36.9 C 71 16 155/80 H 95 01/05/22 05:44 36.5 C 70 12 101/61 93
[2022-01-05] MEDS: SENNA 8.6 MG TAB PO SCH (20:34)
[2022-01-05] MEDS: ATORVASTATIN 20 MG TAB PO SCH (20:35)
[2022-01-06] MEDS: ACETAMINOPHEN 500 MG TAB PO SCH ×2 (06:28→14:15)
[2022-01-06] MEDS: PANTOprazole 40 MG TAB PO SCH (08:21)
[2022-01-06] MEDS: APIXABAN 5 MG TABLET PO SCH (08:21)
[2022-01-06] MEDS: LORATADINE 10 MG TAB PO SCH (08:21)
[2022-01-06] MEDS: DOCUSATE SODIUM 100 MG CAP PO SCH (08:21)
[2022-01-06] MEDS: ESCITALOPRAM OXALATE 10 MG TAB PO SCH (08:21)
[2022-01-06] MEDS: MULTIVITAMIN TAB PO SCH (08:21)
--- NOTE | 2022-01-06 10:39 | Orthopedic Progress Note ---
Date of Service January 06, 2022 Assessment & Plan (1) Status post ORIF of fracture of ankle: Plan: 66 yo male stable POD #6 s/p 1. Open reduction and internal fixation of displaced trimalleolar ankle fracture on the right ankle. 2. Open reduction and internal fixation of syndesmotic disruption, right ankle. 3. Arthrotomy of the lateral ankle joint. 4. Open debridement of the right ankle joint. 1. Med management 2. DVT prophylaxis- Eliquis, SCDs 3. PT/OT 4. Nonweightbearing on the right lower extremity over the next 6 weeks. 5. D/C planning- d/c to [facility] today. Admission and Anticipated Discharge Date Admission Date: December 31, 2021 Subjective POD 6 No new complaints. Pain controlled. Planning for SNF transfer per CM. Physical Exam Physical Exam: Splint C/D/I. Toes pink/warm. cap refill < 2 seconds. Results & Data ([facility]) Vital Signs (Past 12 Hours) Vital Signs Temp Pulse Resp BP Pulse Ox 01/06/22 07:29 36.4 C L 56 L 18 119/77 93 01/05/22 22:49 36.7 C 62 18 112/68 93
--- NOTE | 2022-01-07 10:52 | Discharge Summary ---
Date of Service January 07, 2022 Admission HPI Per Admitting Provider This is a patient who sustained a right ankle fracture approximately 6 weeks ago. Because of his secondary medical conditions, the fracture was treated conservatively. However, in follow-up, the fracture was noted to be displacing and the ankle mortise is widening. He is now being set up for surgical treatment. Admission Exam Per Admitting Provider Physical Exam Constitutional: no acute distress ENMT: external ear and nose normal, oropharynx normal Neck: trachea midline Respiratory: normal respiratory effort, lungs clear to auscultation Cardiovascular: Rate/Rhythm: regular rate and regular rhythm Gastrointestinal (Abdomen): normal bowel sounds, soft, nontender, no hepatosplenomegaly Musculoskeletal: Right ankle: Tender to the lateral and medial aspect of the ankle. Patient is nonweightbearing. Neurologic: normal touch/pain/proprioception Speech / Cognition: + expressive aphasia Lymphatic: no cervical or axillary lymphadenopathy Principal Diagnosis Right trimalleolar ankle fracture Discharge Data Allergies Allergy/AdvReac Type Severity Reaction Status Date / Time No Known Allergies Allergy Verified 12/31/21 12:23 Consultations 12/31/21 19:51 Consult Hospitalist Routine Procedures Performed Operation Date: 12/31/21 14:20 Actual Procedures p Right Ankle Open Reduction Internal Fixation Trimalleolar Fracture with Open Reduction Internal Fixation Syndesmotic Disruption, Arthrotomy Medial Ankle, Ankle Joint Debridement(Right) - Nick Doyle DO Ordered Studies 12/31/21 05:00 US - OR guided needle placemen Routine 12/31/21 14:20 FL ankle RT min 3V RTN Routine Hospital Course (1) Status post ORIF of fracture of ankle: Patient was admitted on above-noted date and had above the surgery performed which started well. With patient's history of previous CVA and right- sided upper extremity paresis, it was felt the patient will require a skilled facility prior to returning to home. On his first postoperative day, he was awake and alert without complaints. Splint was clean and dry. Toes pink and warm. Cap refill is 2 seconds. Patient was started on PT OT protocols nonweightbearing right lower extremity. He was restarted on his apixaban p.o. twice daily and continued on SCDs and NAMITA hose. Pain management as written. Case management was consulted for placement for detention facility. [facility] hospitalist service was consulted for medical management. The patient remained medically stable and orthopedically stable over the next several days as case management attempted to find a facility for him to stay. [facility] and patient was otherwise remaining stable and was fighting to be transferred there for further care. For further review please see chart, lab and x-ray data as per chart. Total Time Total Time Spent Total Time Spent (In Minutes): 5 Discharge Plan Discharge Items Patient Disposition: Transfer Halfway Fac Reason For Visit: Right Ankle Trimalleolar Fracture, Syndesmotic Dis Discharge Diagnosis: Right Ankle Trimalleolar Fracture; Syndesmotic disruption Activity: Per Instructions section Weightbearing Comment: with crutches or walker Non-emergency contact: Surgeon Call non-emergency contact if: your pain is not controlled, your temperature is above 101.5, your wound has increased redness and your wound has increased drainage Follow-up/Referrals: Kyler Villar MD [Primary Care Provider] - Nick Doyle DO [Surgeon] - (Follow up in 14 days from the day of your surgery for your first post operative visit. Please call for appointment if one has not already been scheduled for you. [phone]) Diet: Regular Addtl Attending Provider Instructions: ACTIVITY RECOMMENDATIONS: * YOU MUST BE NONWEIGHTBEARING ON THE RIGHT FOOT AT ALL TIMES. SPECIAL CARE INSTRUCTIONS: * Some drainage onto the dressing is normal and is no cause for alarm. * Some swelling is natural especially after walking. When resting, keep your foot elevated above the level of your heart. * Call the doctor's office at if you notice increased drainage, fever over 101 degrees F. or severe constant pain. BANDAGE: * Leave bandage/cast in place unless otherwise directed. * Keep bandage/cast dry at all times. FOLLOW UP VISIT: If appointment is not already scheduled: Please call [facility] to make a follow-up appointment after your surgery at . Pending Studies at Discharge: No Stand-Alone Forms: My [facility] Skilled Items Patient informed of condition?: Yes DNR: No Discharge Level of Care: Skilled Communicable Disease: No Discharge Prognosis: Stable Lines: None Urinary Catheter: No Medications and DC Order Prescriptions: New polyethylene glycol 3350 [Miralax] 17 gram powder in packet 17 g PO DAILY PRN (Reason: constipation) Qty: 5 RF: 0 acetaminophen 500 mg capsule 1,000 mg PO Q8H 14 Days Qty: 84 RF: 0 oxycodone 5 mg Tablet 5 mg PO Q4H MDD 6 PRN (Reason: pain) Qty: 30 RF: 0 Continued atorvastatin 20 mg tablet 20 mg PO HS Qty: 30 RF: 5 Eliquis 5 mg tablet 5 mg PO BID Qty: 60 RF: 5 multivitamin Tablet 1 tab PO QAM RF: 0 omeprazole 40 mg capsule,delayed release(DR/EC) 40 mg PO QAM RF: 0 loratadine [Claritin] 10 mg tablet 10 mg PO QAM RF: 0 escitalopram oxalate 10 mg tablet 10 mg PO QAM RF: 0 Discharge Orders: Discharge Order (Routine); Ordered 01/02/22 Ordered By: Henrik Combs Admission Data Admit Date/Time: 12/31/21 18:20 Attending Provider: Nick Doyle Admit Provider: Nick Doyle Primary Care Provider: Kyler Villar Other Providers: Jacoby Khan ; Franco Richter Other Interventions: Discharge Summary Assessment (RN) Last Done: 01/06/22 12:29
== END 2022-01-06 15:03 ==
LOC: ASU 12:04 → 3N 18:20 → INTOOBSV 18:20